=== PATIENT | male | born 1985 | race Caucasian/White ===

== ENCOUNTER 2019-11-29 19:22 | Emergency (ER) | payer OTHER ==
[~2019-11-29] VITALS: Ht 182.9 cm; Wt 95.3 kg
[2019-11-29] MEDS ORDERED: ULTRAM 50MG TAB50 MG PO (21:01)
[2019-11-29 21:12] VITALS: BP 154/89
== END 2019-11-29 21:14 | disposition home or self-care (01) ==
LOC: M.ERS 19:22
DX: B34.9 Viral infection, unspecified (principal); Z20.828 Contact with and (suspected) exposure to other viral communicable diseases; Z88.0 Allergy status to penicillin